=== PATIENT | male | born 1995 ===

== ENCOUNTER 2018-04-29 13:55 | Emergency (ER) | payer BC, MEDICAID ==
[2018-04-29 13:59] VITALS: BMI 23.7
--- NOTE | 2018-04-29 14:14 | ED PDOC ---
HPI: General Adult Time Seen by Provider: 04/29/18 14:03 Chief Complaint (Nursing): Flu-like Symptoms Chief Complaint (Provider): cough and back pain History Per: Patient Additional Complaint(s): 22-year-old male presents with upper and mid back pain associated with cough for 3 days. He denies any chest pain. Patient has history of asthma but doesn't take meds daily for the asthma. He denies recent travel. No known fever and no chills. PMD: none Past Medical History Reviewed: Historical Data, Nursing Documentation, Vital Signs Vital Signs: Last Vital Signs Temp 98.8 F 04/29/18 14:00 Pulse 55 L 04/29/18 14:00 Resp 17 04/29/18 14:00 BP 109/65 04/29/18 14:00 Pulse Ox 99 04/29/18 14:15 - Medical History PMH: Asthma - Surgical History Surgical History: No Surg Hx - Family History Family History: States: No Known Family Hx - Living Arrangements Living Arrangements: With Family - Social History Current smoker - smoking cessation education provided: Yes (3 cigarettes per day ) Alcohol: None Drugs: Denies - Allergies Allergies/Adverse Reactions: Allergies Allergy/AdvReac Type Severity Reaction Status Date / Time No Known Allergies Allergy Verified 04/29/18 13:58 Review of Systems ROS Statement: Except As Marked, All Systems Reviewed And Found Negative Constitutional: Negative for: Fever Cardiovascular: Negative for: Chest Pain Respiratory: Positive for: Cough Musculoskeletal: Positive for: Back Pain (mid and upper) Physical Exam - Reviewed Nursing Documentation Reviewed: Yes Vital Signs Reviewed: Yes - Physical Exam Appears: Positive for: Well, Non-toxic, No Acute Distress Skin: Positive for: Normal Color. Negative for: Rash Eye Exam: Positive for: Normal appearance Neck: Positive for: Normal Cardiovascular/Chest: Positive for: Regular Rate, Rhythm, Chest Non Tender Respiratory: Positive for: Wheezing (Bilateral inspiratory and expiratory wheezing). Negative for: Respiratory Distress Gastrointestinal/Abdominal: Positive for: Soft. Negative for: Tenderness, Distended, Guarding, Rebound Back: Negative for: L CVA Tenderness, R CVA Tenderness, Vertebral Tenderness Extremity: Positive for: Normal ROM. Negative for: Pedal Edema Neurologic/Psych: Positive for: Alert, Oriented - ECG O2 Sat by Pulse Oximetry: 99 Pulse Ox Interpretation: Normal - Other Rad CXR X-Ray: Interpreted by Me, Viewed By Me X-Ray Interpretation: no acute finding Nebulizer Treatments/Peak Flow - Duonebs Number of Bronchodilator Doses given?: 1 (duoneb) - Pre/Post Peak Flow Pre Treatment Peak Flow: 250 Post treatment Peak Flow: 300 - Steroid Treatment Steroid: Not Clinically Indicated - Clinical Response Clinical Response: Improved Medical Decision Making Medical Decision Makin22 y/o with back pain and cough Plan: Duoneb x 1 CXR Patient states he feels better after treatment. Patient aware of chest x-ray results. All questions answered. Prescription for Ventolin inhaler, Zithromax and Tessalon Perles provided. Patient was referred to clinic for follow-up. Smoking cessation instructions provided. Disposition - Clinical Impression Clinical Impression: Asthmatic bronchitis - Patient ED Disposition Is Patient to be Admitted: No Counseled Patient/Family Regarding: Studies Performed, Diagnosis, Need For Followup, Rx Given, Smoking Cessation - Disposition Referrals: [facility] [Outside] Disposition: Routine/Home Disposition Time: 14:56 Condition: STABLE Additional Instructions: Take prescription meds as directed. Follow-up with clinic in 2-3 days. Instructions: Asthma, Adult (DC), Acute Bronchitis, Quitting Smoking Forms: [facility] ([place]), [facility] School/Work Excuse
[2018-04-29] MEDS ORDERED: Albuterol-Ipratrop 3 mg / 0.5 (3 ml) UD INH STA (14:16)
[2018-04-29] MEDS ORDERED: Albuterol-Ipratrop 3 mg / 0.5 (3 ml) UD ONE (14:57)
[2018-04-29 15:26] VITALS: BP 123/68; PULSE 51; RESP 16; TEMP 98.1; O2SAT 100
== END 2018-04-29 15:09 | disposition home or self-care (01) ==
LOC: H.ER 13:55
DX: J45.909 Unspecified asthma, uncomplicated (principal); F17.210 Nicotine dependence, cigarettes, uncomplicated